=== PATIENT | male | born 2005 | race African-American/Black ===

== ENCOUNTER 2024-02-01 23:19 | Emergency (ER) | payer SELFPAY ==
[~2024-02-01] VITALS: Ht 190.5 cm; Wt 77.2 kg
[2024-02-01 23:33] VITALS: O2SAT 95
[2024-02-01] MEDS ORDERED: PREDNISONE 20MG TABLET PO STA (23:54)
[2024-02-01] MEDS ORDERED: ALBUTEROL (0.083%) 2.5MG/3ML NEB HHN STA (23:54)
[2024-02-01] MEDS ORDERED: IPRATROPIUM BROMIDE (0.02%) 0.5MG/2.5ML NEB HHN STA (23:54)
[2024-02-02] MEDS ORDERED: ALBU18HF2 IH
[2024-02-02] MEDS ORDERED: P50 PO
[2024-02-02 01:30] VITALS: PULSE 78; RESP 16
[2024-02-02] MEDS ORDERED: ALBUTEROL (0.083%) 2.5MG/3ML NEB HHN NR (01:30)
[2024-02-02] MEDS ORDERED: IPRATROPIUM BROMIDE (0.02%) 0.5MG/2.5ML NEB HHN NR (01:30)
[2024-02-02] MEDS: PREDNISONE 20MG TABLET PO NR (02:00)
[2024-02-02 02:15] VITALS: BP 112/65; PULSE 95; RESP 18; TEMP 36.78072; O2SAT 100
== END 2024-02-02 02:20 | disposition home or self-care (01) ==
LOC: ER 23:42
DX: J45.901 Unspecified asthma with (acute) exacerbation (principal); Z79.52 Long term (current) use of systemic steroids
CPT/HCPCS: 99283; 94640; J7512; Z7610 ×3